=== PATIENT | female | born 1965 | race Caucasian/White ===

== ENCOUNTER 2017-02-09 03:02 | Observation (INO) | payer OTHER ==
[~2017-02-09] VITALS: Ht 172.7 cm; Wt 146.0 kg
[2017-02-09 03:35] LABS: HEMATOCRIT 41.8 % (36.0-46.0); MCH 26.7 PG (29.0-34.0); MCHC 31.6 G/DL (30.0-36.0); MCV 84.4 FL (83-99); MEAN PLAT.VOLUME 10.2 uM^3 (9.5-12.4); PLATELET COUNT 308 K/uL (156-360); RBC DIS.WIDTH-CV 13.4 % (11.8-14.6); RBC DIS.WIDTH-SD 41.1 % (39-53); RED BLOOD COUNT 4.95 M/uL (3.80-5.20); WHITE BLOOD COUNT 9.1 K/uL (4.1-10.2)
[2017-02-09 03:49] LABS: CHLORIDE 104 mEq/L (99-109); POTASSIUM 4.3 mEq/L (3.7-5.4); SODIUM 142 mEq/L (136-147)
[2017-02-09 03:51] LABS: GLUCOSE 101 mg/dL (70-99)
[2017-02-09 03:52] LABS: ANION GAP 12 MEQ/L (2-14)
[2017-02-09 03:55] LABS: GFR ESTIMATE (CALCULATED) > 59 mL/min/
[2017-02-09 03:56] LABS: UREA NITROGEN (BUN) 14 mg/dL (9-23)
[2017-02-09 04:01] LABS: TROP-I INTERPRETATION NEGATIVE; TROPONIN-I < 0.01 ng/mL (0.0-0.30)
[2017-02-09 06:05] VITALS: BP 155/70
[2017-02-09] MEDS ORDERED: LOSARTAN POTAS100 MG PO (06:22)
[2017-02-09] MEDS ORDERED: BISOPROLOL FUMAR5 MG PO (06:22)
[2017-02-09 08:56] VITALS: BP 138/72
[2017-02-09 10:45] LABS: TROP-I INTERPRETATION NEGATIVE; TROPONIN-I < 0.01 ng/mL (0.0-0.30)
[2017-02-09 11:00] LABS: INTACT PARATHYROID HORMONE 14 pg/mL (10-69)
[2017-02-09 11:27] VITALS: BP 115/55
[2017-02-09] MEDS ORDERED: HYDROCHLOROTHIA25 MG PO (15:36)
[2017-02-09] MEDS ORDERED: ASPIR-LOW81 MG PO (15:52)
[2017-02-09 16:23] VITALS: BP 152/72
[2017-02-09 16:30] LABS: TROP-I INTERPRETATION NEGATIVE; TROPONIN-I < 0.01 ng/mL (0.0-0.30)
== END 2017-02-09 17:20 | disposition home or self-care (01) ==
LOC: EME 03:02 → EDOF 05:04 → 5WEST 05:58
PROVIDERS: Internal Medicine
DX: R07.89 Other chest pain (principal); I10 Essential (primary) hypertension; E66.9 Obesity, unspecified; Z68.43 Body mass index [BMI] 50.0-59.9, adult
CPT/HCPCS: 71020; 80048; 83970; 84484; 85027; 93005; 93306; 99281; 99285; G0378; J1885